=== PATIENT | female | born 1990 | race Caucasian/White ===

== ENCOUNTER 2020-03-07 12:15 | Inpatient (IN) | payer OTHER ==
[~2020-03-07] VITALS: Ht 157.5 cm; Wt 71.4 kg
[2020-03-07 13:11] LABS: MICROSCOPIC INDICATED
[2020-03-07 13:16] LABS: AMPHETAMINE SCREEN, URINE Negative (Negative); BARBITURATE SCREEN, URINE Negative (Negative); BENZODIAZEPINE SCREEN, URINE Negative (Negative); CANNABINOID SCREEN, URINE Negative (Negative); COCAINE SCREEN, URINE Negative (Negative); METHADONE SCREEN, URINE Negative (Negative); OPIATE SCREEN, URINE Negative (Negative)
[2020-03-07] MEDS ORDERED: METOCLOPRAMIDE 5 MG/ML, 2ML IV ONE (14:30)
[2020-03-07] MEDS ORDERED: LACTATED RINGERS 1,000 ML IVBOLUS ONE (14:30)
[2020-03-07] MEDS ORDERED: SODIUM CITRATE/CITRIC ACID 30 ML UDC PO ONE (14:30)
[2020-03-07] MEDS ORDERED: METOCLOPRAMIDE 5 MG/ML, 2ML ONE (14:41)
[2020-03-07] MEDS ORDERED: SODIUM CITRATE/CITRIC ACID 30 ML UDC ONE (14:42)
[2020-03-07 15:14] LABS: BASOPHILS # (AUTO) 0.04 x10^3/uL (0-0.1); BASOPHILS % (AUTO) 0 % (0-1); EOSINOPHILS # (AUTO) 0.03 x10^3/uL (0-0.4); EOSINOPHILS % (AUTO) 0 % (1-7); LYMPHOCYTES # (AUTO) 1.68 x10^3/uL (1-3.4); LYMPHOCYTES % (AUTO) 20 % (22-44); MD NO; MEAN CORPUSCULAR HEMOGLOBIN 23.6 pg (27.0-34.8); MEAN CORPUSCULAR VOLUME 73.6 fL (80-100); MEAN PLATELET VOLUME 10.9 fL (7.4-10.4); MONOCYTES # (AUTO) 0.42 x10^3/uL (0.2-0.8); MONOCYTES % (AUTO) 5 % (2-9); NEUTROPHILS # (AUTO) 6.16 x10^3/uL (1.8-6.8); NEUTROPHILS % (AUTO) 74 % (42-75); PLATELET COUNT 205 x10^3/uL (130-400); RED BLOOD COUNT 3.63 x10^6/uL (3.82-5.3); RED CELL DISTRIBUTION WIDTH 16.5 % (9.6-15.2)
[2020-03-07] MEDS ORDERED: NEWBORN KIT ONE (15:44)
[2020-03-07] MEDS ORDERED: morphine SULFATE/PF 1 MG/ML, 10ML ONE (16:24)
[2020-03-07] MEDS ORDERED: CEFAZOLIN 1,000 MG ONE (16:28)
[2020-03-07] MEDS ORDERED: ONDANSETRON 2MG/ML, 2ML ONE (16:28)
[2020-03-07] MEDS ORDERED: WATER-INJECTION,STERILE 10 ML IV ONE (16:28)
[2020-03-07] MEDS ORDERED: OXYTOCIN 10 UNITS/ML, 1ML ONE (16:28)
[2020-03-07] MEDS ORDERED: DEXAMETHASONE 4 MG/ML, 1ML ONE (16:28)
[2020-03-07] MEDS ORDERED: KETOROLAC 30 MG/1 ML ONE (16:28)
[2020-03-07] MEDS ORDERED: PHENYLEPHRINE 10 MG/ML ONE (16:46)
[2020-03-07] MEDS: LACTATED RINGERS 1,000 ML IV SCH ×2 (17:39→19:30)
[2020-03-07] MEDS ORDERED: ONDANSETRON 2MG/ML, 2ML IV PRN (18:00)
[2020-03-07] MEDS ORDERED: IBUPROFEN 600 MG TABLET PO PRN (18:00)
[2020-03-07] MEDS ORDERED: CALCIUM CARBONATE 500 MG TAB.CHEW PO PRN (18:00)
[2020-03-07] MEDS ORDERED: METOCLOPRAMIDE 5 MG/ML, 2ML IV PRN (18:00)
[2020-03-07] MEDS ORDERED: KETOROLAC 30 MG/1 ML IV SCH (18:00)
[2020-03-07] MEDS ORDERED: OXYcodone/APAP 5/325MG TABLET PO PRN (18:00)
[2020-03-07] MEDS ORDERED: NALOXONE 0.4 MG/ML, 1ML IV PRN ×2 (18:30→19:00)
[2020-03-07] MEDS ORDERED: OXYTOCIN 30U/ 0.9% NaCL 500ML 500 ML ONE (18:36)
[2020-03-07] MEDS ORDERED: NO SEDATIVES, TRANQUILIZERS OR ANTIEMETICS XX SCH (19:00)
[2020-03-07] MEDS ORDERED: ONDANSETRON 2MG/ML, 2ML IVPush PRN (19:00)
[2020-03-07] MEDS ORDERED: DIPHENHYDRAMINE 50 MG/ML, 1ML IV PRN (19:00)
[2020-03-07] MEDS ORDERED: EPHEDRINE 50 MG/ML, 1ML IVPush PRN (19:00)
[2020-03-07] MEDS ORDERED: OXYcodone/APAP 5/325MG TABLET ONE (19:24)
[2020-03-07] MEDS: OXYcodone/APAP 5/325MG TABLET PO PRN (19:28)
[2020-03-07] MEDS: OXYTOCIN 30U/ 0.9% NaCL 500ML 500 ML IV SCH (19:30)
[2020-03-07 19:50] VITALS: BP 104/62
[2020-03-07] MEDS: SIMETHICONE 80 MG CHEW TAB PO PRN (23:54)
[2020-03-07] MEDS: KETOROLAC 30 MG/1 ML IVPush SCH (23:54)
[2020-03-07] MEDS: DOCUSATE 100 MG CAPSULE PO PRN (23:54)
[2020-03-08] VITALS: BP 101/67
[2020-03-08] MEDS: morphine SULFATE 10 MG/ML, 1ML IVPush PRN ×2 (00:32→04:29)
[2020-03-08] MEDS: LACTATED RINGERS 1,000 ML IV SCH ×5 (01:39→17:39)
[2020-03-08 02:11] LABS: BASOPHILS % (AUTO) 0 % (0-1); EOSINOPHILS % (AUTO) 0 % (1-7); LYMPHOCYTES # (AUTO) 1.18 x10^3/uL (1-3.4); LYMPHOCYTES % (AUTO) 10 % (22-44); MD NO; MEAN CORPUSCULAR HEMOGLOBIN 23.4 pg (27.0-34.8); MEAN CORPUSCULAR HGB CONC 31.7 g/dL (32.4-35.8); MEAN CORPUSCULAR VOLUME 73.8 fL (80-100); MEAN PLATELET VOLUME 10.4 fL (7.4-10.4); MONOCYTES # (AUTO) 0.22 x10^3/uL (0.2-0.8); MONOCYTES % (AUTO) 2 % (2-9); NEUTROPHILS # (AUTO) 10.09 x10^3/uL (1.8-6.8); NEUTROPHILS % (AUTO) 88 % (42-75); PLATELET COUNT 185 x10^3/uL (130-400); RED BLOOD COUNT 3.13 x10^6/uL (3.82-5.3); RED CELL DISTRIBUTION WIDTH 15.8 % (9.6-15.2)
[2020-03-08] MEDS: OXYTOCIN 30U/ 0.9% NaCL 500ML 500 ML IV SCH ×2 (03:39→13:39)
[2020-03-08] MEDS ORDERED: MORPHINE SULFATE 4 MG/ML, 1ML ONE (04:23)
[2020-03-08 04:34] VITALS: BP 103/70
[2020-03-08] MEDS ORDERED: MORPHINE SULFATE 4 MG/ML, 1ML IVPush PRN (05:00)
[2020-03-08] MEDS: SIMETHICONE 80 MG CHEW TAB PO PRN (05:31)
[2020-03-08] MEDS: KETOROLAC 30 MG/1 ML IVPush SCH ×4 (05:31→23:28)
[2020-03-08 08:27] VITALS: BP 97/62
[2020-03-08] MEDS: PRENATAL VIT/IRON/FA 1 EACH TABLET PO SCH (09:00)
[2020-03-08] MEDS ORDERED: OXYcodone/APAP 5/325MG TABLET PO PRN (09:00)
[2020-03-08] MEDS: DOCUSATE 100 MG CAPSULE PO PRN ×2 (09:15→23:29)
[2020-03-08 12:00] VITALS: BP 100/65
[2020-03-08] MEDS: OXYcodone/APAP 5/325MG TABLET PO PRN ×3 (13:18→23:28)
[2020-03-08 16:08] VITALS: BP 98/65
[2020-03-08] MEDS: FERROUS SULFATE 325 MG TABLET PO SCH (16:54)
[2020-03-08] MEDS ORDERED: IBUPROFEN 600 MG TABLET PO PRN (18:00)
[2020-03-08 19:30] VITALS: BP 108/73
[2020-03-09] MEDS: OXYcodone/APAP 5/325MG TABLET PO PRN ×3 (04:35→12:06)
[2020-03-09] MEDS: KETOROLAC 30 MG/1 ML IVPush SCH ×2 (05:25→11:17)
[2020-03-09 07:00] VITALS: BP 101/65
[2020-03-09] MEDS: DOCUSATE 100 MG CAPSULE PO PRN (08:04)
[2020-03-09] MEDS: SIMETHICONE 80 MG CHEW TAB PO PRN (08:04)
[2020-03-09] MEDS: PRENATAL VIT/IRON/FA 1 EACH TABLET PO SCH (08:04)
[2020-03-09] MEDS: FERROUS SULFATE 325 MG TABLET PO SCH (08:04)
[2020-03-09] MEDS ORDERED: DIPH,PERTUSS(ACELL),TET VAC/PF NC IM-VACC ONE ×2 (14:13→15:30)
[2020-03-09] MEDS ORDERED: DOCU-131 PO (15:07)
[2020-03-09] MEDS ORDERED: IBUP-1222 PO (15:07)
[2020-03-09] MEDS ORDERED: OXYC-302 PO (15:07)
[2020-03-09] MEDS ORDERED: FERR325T5 PO (15:08)
== END 2020-03-09 16:32 | disposition home or self-care (01) | DRG 788 ==
LOC: LDOP 12:15 → LDIP 14:29 → 2NW 19:35
PROVIDERS: ADMIT Obstetrics & Gynecology; ATTEND Obstetrics & Gynecology
PROC: 10D00Z1 Extraction of Products of Conception, Low, Open Approach (ICD-10-PCS; principal; 2020-03-09)
DX: O36.8130 Decreased fetal movements, third trimester, not applicable or unspecified (principal); O34.211 Maternal care for low transverse scar from previous cesarean delivery; D64.9 Anemia, unspecified; Z37.0 Single live birth; Z88.8 Allergy status to other drugs, medicaments and biological substances; Z88.5 Allergy status to narcotic agent; Z88.6 Allergy status to analgesic agent; O90.81 Anemia of the puerperium; Z3A.40 40 weeks gestation of pregnancy
CPT/HCPCS: 36415; 76815; 80307; 81001; 85025; 86592; 86850; 86900; 87086; 90715; G0378; J0690; J1100; J1885; J2274; J2405; J2270; J2370; J2590; J2765; J7120